=== PATIENT | male | born 1955 ===

== ENCOUNTER 2023-01-20 07:48 | Inpatient (IN) | payer OTHER ==
[~2023-01-20] VITALS: Ht 170.2 cm; Wt 81.6 kg
[2023-01-20 08:34] LABS: HEMATOCRIT 40.9 % (39.0-48.0); HEMOGLOBIN 13.4 g/dL (13-16.00); MEAN CELL VOLUME 93.8 fL (80.0-100.00); MEAN CORPUSCULAR HEMOGLOBIN 30.7 pg (27.00-32.0); MEAN CORPUSCULAR HGB CONC 32.8 g/dl (32.0-36.0); PLATELET COUNT 219 K/uL (150-450); RED BLOOD COUNT 4.36 M/uL (4.00-6.00); RED CELL DISTRIBUTION WIDTH 14.4 % (11.5-14.5)
[2023-01-20 08:52] LABS: INR 0.98; PROTHROMBIN TIME 10.3 SECONDS (9.0-11.5)
[2023-01-20 08:57] LABS: CALCIUM 9.4 mg/dL (8.5-10.1); CREATININE SERUM 0.72 mg/dL (0.70-1.30); GFR 108.89; POTASSIUM 4.34 mEq/L (3.5-5.1)
[2023-01-20] MEDS ORDERED: GLIMEPIRIDE4 M1 PO (08:58)
[2023-01-20] MEDS ORDERED: GABAP PO (08:58)
[2023-01-20] MEDS ORDERED: GLUMETZA1000 MG PO (08:58)
[2023-01-20] MEDS ORDERED: CATAFLAN PO (08:59)
[2023-01-20] MEDS ORDERED: BACLOF PO (08:59)
[2023-01-20] MEDS ORDERED: SYNTHROID100 MCG PO (08:59)
[2023-01-20 10:08] LABS: PH,URINE 5.5 (5.0-8.0); URINE APPEARANCE Clear; URINE BILIRRUBIN Negative (NEGATIVE); URINE BLOOD Negative; URINE COLOR Yellow; URINE GLUCOSE Negative (NEGATIVE); URINE LEUKOCYTE Negative; URINE NITRATE Negative; URINE PROTEIN Negative (NEGATIVE); URINE UROBILINOGEN 0.2 E.U./dl
[2023-01-20 10:20] LABS: URINE RBC 2.1 uL (0.0-20.8)
[2023-01-20 10:41] LABS: URINE BACTERIA 2.5 uL (0.0-1933); URINE EPITHELIAL CELLS 0.6 uL (0.0-38.8)
[2023-01-26 06:42] LABS: HEMATOCRIT 37.4 % (39.0-48.0); HEMOGLOBIN 12.9 g/dL (13-16.00); MEAN CORPUSCULAR HEMOGLOBIN 31.8 pg (27.00-32.0); MEAN CORPUSCULAR HGB CONC 34.5 g/dl (32.0-36.0); PLATELET COUNT 200 K/uL (150-450); RED BLOOD COUNT 4.07 M/uL (4.00-6.00); RED CELL DISTRIBUTION WIDTH 14.8 % (11.5-14.5)
[2023-01-26 07:13] LABS: ALBUMIN 3.3 gm/dL (3.4-5.0); CALCIUM 8.8 mg/dL (8.5-10.1); CREATININE SERUM 0.78 mg/dL (0.70-1.30); GFR 99.28; POTASSIUM 4.14 mEq/L (3.5-5.1)
== END 2023-01-26 11:51 | disposition home or self-care (01) | DRG 708 ==
LOC: SURH 01-25 05:36 → O/R 01-25 05:36 → SURG 01-25 09:30 → SURH 01-25 20:18 → SURG 01-26 11:30 → SURH 01-26 11:51
PROVIDERS: ADMIT Urology; ATTEND Urology
PROC: 07BC4ZZ Excision of Pelvis Lymphatic, Percutaneous Endoscopic Approach (ICD-10-PCS; 2023-01-25)
PROC: 8E0W4CZ Robotic Assisted Procedure of Trunk Region, Percutaneous Endoscopic Approach (ICD-10-PCS; 2023-01-25)
PROC: 0VT04ZZ Resection of Prostate, Percutaneous Endoscopic Approach (ICD-10-PCS; principal; 2023-01-25 09:30)
DX: C61 Malignant neoplasm of prostate (principal); Z20.822 Contact with and (suspected) exposure to COVID-19